=== PATIENT | male | born 1965 | race African-American/Black ===

== ENCOUNTER 2020-07-06 15:52 | Inpatient (IN) | payer OTHER ==
[2020-07-06 17:01] VITALS: BMI 25.8
[2020-07-06] MEDS ORDERED: DEXAMETHASONE SOD PHOSPHATE 10 MG/1 ML VIAL IVPUSH ONE (17:07)
[2020-07-06 17:56] LABS: BASO % 0.1 % (0-2.0); EOS % 0.9 % (0-4.5); HEMATOCRIT 36.9 % (35.4-49); HEMOGLOBIN 12.6 GM/dL (11.7-16.9); LYMPH % 19.9 % (8-40); MCH 31.2 pg (25.7-33.7); MCHC 34.3 g/dl (32.0-35.9); MEAN PLT VOLUME 7.9 fl (7.5-11.1); MONO % 3.9 % (3.8-10.2); NEUT % 75.2 % (42.8-82.8); PLATELET COUNT 143 K/MM3 (134-434); RBC 4.05 M/mm3 (4.00-5.60); RDW 15.2 % (11.9-15.9); WHITE BLOOD COUNT 4.1 K/mm3 (4.0-10.0)
[2020-07-06 18:09] LABS: CHLORIDE 103 mmol/L (98-107); POTASSIUM 4.2 mmol/L (3.5-5.1); SODIUM 137 mmol/L (136-145)
[2020-07-06 18:10] LABS: CALCIUM 8.4 mg/dL (8.5-10.1)
[2020-07-06 18:11] LABS: ALBUMIN 3.5 g/dl (3.4-5.0); ANION GAP 5 MMOL/L (8-16); BLOOD UREA NITROGEN 11.6 mg/dL (7-18); CO2 30 mmol/L (21-32); GLUCOSE,RANDOM 87 mg/dL (74-106)
[2020-07-06 18:14] LABS: SGOT/AST 39 U/L (15-37); SGPT/ALT 36 U/L (13-61)
[2020-07-06 18:16] LABS: BILIRUBIN,TOTAL 0.3 mg/dL (0.2-1); TOT PROT 7.4 g/dl (6.4-8.2)
[2020-07-06 18:17] LABS: ALK PHOS 99 U/L (45-117)
[2020-07-06] MEDS ORDERED: AZITHROMYCIN IVPB 500 MG in DEXTROSE 5%-WATER - 250 ML IVPB ONE (18:22)
[2020-07-06] MEDS ORDERED: CEFTRIAXONE 1 GM in DEXTROSE 5%-WATER - 100 ML IVPB ONE (18:22)
[2020-07-06 18:24] LABS: BILIRUBIN,DIRECT 0.1 mg/dL (0.0-0.2)
[2020-07-06] MEDS ORDERED: DEXAMETHASONE SOD PHOSPHATE 10 MG/1 ML VIAL ONE (19:03)
[2020-07-06] MEDS ORDERED: CEFTRIAXONE 1 GM/50 ML BAG ONE (19:04)
[2020-07-06] MEDS ORDERED: AZITHROMYCIN IVPB 500 MG/250 ML BAG IVPB ONE (19:04)
[2020-07-06 23:11] LABS: URINE APPEARANCE CLEAR; URINE BILIRUBIN NEGATIVE (NEGATIVE); URINE COLOR YELLOW; URINE GLUCOSE (UA) NEGATIVE (NEGATIVE); URINE KETONE NEGATIVE (NEGATIVE); URINE LEUK ESTERASE NEGATIVE (NEGATIVE); URINE NITRITE NEGATIVE (NEGATIVE); URINE PROTEIN TRACE (NEGATIVE)
[2020-07-07] MEDS: OSELTAMIVIR PHOSPHATE 75 MG CAPSULE PO SCH ×3 (02:18→21:21)
[2020-07-07 08:44] LABS: HEMATOCRIT 37.1 % (35.4-49); LYMPH % 15.8 % (8-40); MCH 31.6 pg (25.7-33.7); MEAN CELL VOLUME 90.4 fl (80-96); MEAN PLT VOLUME 8.3 fl (7.5-11.1); NEUT % 80.2 % (42.8-82.8); PLATELET COUNT 164 K/MM3 (134-434); RDW 15.2 % (11.9-15.9); WHITE BLOOD COUNT 3.7 K/mm3 (4.0-10.0)
[2020-07-07 09:08] LABS: POTASSIUM 4.7 mmol/L (3.5-5.1)
[2020-07-07 09:11] LABS: CALCIUM 8.8 mg/dL (8.5-10.1)
[2020-07-07 09:13] LABS: ALBUMIN 3.4 g/dl (3.4-5.0); BLOOD UREA NITROGEN 13.9 mg/dL (7-18)
[2020-07-07 09:16] LABS: CREATININE 0.9 mg/dL (0.55-1.3); PHOSPHOROUS 3.1 mg/dL (2.5-4.9)
[2020-07-07 09:17] LABS: BILIRUBIN,TOTAL 0.3 mg/dL (0.2-1); MAGNESIUM 2.2 mg/dL (1.8-2.4); TOT PROT 7.3 g/dl (6.4-8.2)
[2020-07-07] MEDS ORDERED: DEXAMETHASONE 4 MG TABLET (FP) PO SCH (10:00)
[2020-07-07] MEDS ORDERED: AZITHROMYCIN IVPB 500 MG/250 ML BAG IVPB SCH (10:00)
[2020-07-07] MEDS ORDERED: CEFTRIAXONE 1 GM in DEXTROSE 5%-WATER - 50 ML IVPB SCH (10:00)
[2020-07-07] MEDS ORDERED: DEXTROSE 5%-WATER - 50 ML IVPB ONE (10:13)
[2020-07-07] MEDS ORDERED: cefTRIAXone SODIUM 1 GM VIAL ONE (10:13)
[2020-07-07] MEDS ORDERED: PT OWN MED DRAWER 7, Y5N ONE (10:13)
[2020-07-07] MEDS: ASPIRIN COATED 81 MG TABLET.EC PO SCH (10:20)
[2020-07-07] MEDS: ZINC SULFATE 220 MG CAPSULE (FP) PO SCH (10:21)
[2020-07-07] MEDS: ASCORBIC ACID 500 MG TABLET (FP) PO SCH (10:21)
[2020-07-07] MEDS: amLODIPine BESYLATE 5 MG TABLET (FP) PO SCH (10:21)
[2020-07-07] MEDS: FAMOTIDINE 20 MG TABLET PO SCH (10:21)
[2020-07-07] MEDS: ENOXAPARIN NA (PORCINE) 40 MG/0.4 ML DISP.SYRIN SQ SCH (10:25)
[2020-07-07] MEDS: DEXAMETHASONE SOD PHOSPHATE 10 MG/1 ML VIAL IVPUSH SCH (11:21)
[2020-07-07] MEDS: ALBUTEROL SO4 HFA INHALER IH SCH ×3 (11:22→20:54)
[2020-07-07] MEDS: BUDESONIDE/FORMETEROL FUMARATE 160/4.5 mcg INHALER IH SCH ×2 (14:03→21:21)
[2020-07-08 09:19] LABS: BASO % 0.1 % (0-2.0); HEMATOCRIT 36.2 % (35.4-49); HEMOGLOBIN 12.3 GM/dL (11.7-16.9); LYMPH % 5.7 % (8-40); MCH 30.8 pg (25.7-33.7); MEAN CELL VOLUME 90.6 fl (80-96); MEAN PLT VOLUME 8.5 fl (7.5-11.1); MONO % 3.6 % (3.8-10.2); NEUT % 90.6 % (42.8-82.8); PLATELET COUNT 176 K/MM3 (134-434); RBC 3.99 M/mm3 (4.00-5.60); RDW 15.2 % (11.9-15.9); WHITE BLOOD COUNT 13.7 K/mm3 (4.0-10.0)
[2020-07-08] MEDS ORDERED: PT OWN MED DRAWER 7, Y5N ONE (09:57)
[2020-07-08] MEDS: ASPIRIN COATED 81 MG TABLET.EC PO SCH (10:00)
[2020-07-08] MEDS: ASCORBIC ACID 500 MG TABLET (FP) PO SCH (10:00)
[2020-07-08] MEDS: ZINC SULFATE 220 MG CAPSULE (FP) PO SCH (10:00)
[2020-07-08] MEDS: FAMOTIDINE 20 MG TABLET PO SCH (10:00)
[2020-07-08] MEDS: OSELTAMIVIR PHOSPHATE 75 MG CAPSULE PO SCH (10:00)
[2020-07-08] MEDS: DEXAMETHASONE SOD PHOSPHATE 10 MG/1 ML VIAL IVPUSH SCH (10:01)
[2020-07-08] MEDS: BUDESONIDE/FORMETEROL FUMARATE 160/4.5 mcg INHALER IH SCH (10:01)
[2020-07-08] MEDS: ALBUTEROL SO4 HFA INHALER IH SCH ×3 (10:01→17:02)
[2020-07-08] MEDS: ENOXAPARIN NA (PORCINE) 40 MG/0.4 ML DISP.SYRIN SQ SCH (10:01)
[2020-07-08] MEDS: amLODIPine BESYLATE 5 MG TABLET (FP) PO SCH (10:01)
[2020-07-08 10:06] LABS: POTASSIUM 4.5 mmol/L (3.5-5.1)
[2020-07-08 10:15] LABS: ALBUMIN 3.3 g/dl (3.4-5.0)
[2020-07-08 10:16] LABS: BILIRUBIN,TOTAL 0.3 mg/dL (0.2-1); TOT PROT 7.2 g/dl (6.4-8.2)
[2020-07-08 10:17] LABS: BLOOD UREA NITROGEN 16.1 mg/dL (7-18)
[2020-07-08 10:18] LABS: CREATININE 0.9 mg/dL (0.55-1.3)
[2020-07-08 10:19] LABS: MAGNESIUM 2.3 mg/dL (1.8-2.4); PHOSPHOROUS 3.8 mg/dL (2.5-4.9)
[2020-07-08 10:20] LABS: CALCIUM 8.6 mg/dL (8.5-10.1)
[2020-07-08 15:19] VITALS: BP 142/83; PULSE 90; TEMP 98.5
[2020-07-09] MEDS ORDERED: DEXAMETHASONE 4 MG TABLET (FP) PO SCH (10:00)
== END 2020-07-08 17:46 | disposition home or self-care (01) | DRG 177 ==
LOC: JER 15:52 → JERBED 17:07 → J8W 07-07 01:43
PROVIDERS: ADMIT Hospitalist; ATTEND Internal Medicine
DX: U07.1 COVID-19 (principal); J12.82 Pneumonia due to coronavirus disease 2019; J96.01 Acute respiratory failure with hypoxia; J10.1 Influenza due to other identified influenza virus with other respiratory manifestations; I10 Essential (primary) hypertension; Z86.73 Personal history of transient ischemic attack (TIA), and cerebral infarction without residual deficits
CPT/HCPCS: 36415; 71045-TC-FY; 80053; 81003; 82248; 82550; 82728; 83615; 83735; 84100; 84439; 84443; 84480; 84484; 85025; 85379; 86140; 86769; 87040; 87086; 87804; 93005; 93010; 94010; 99285-25; C9803; J1100; U0003